=== PATIENT | female | born 1965 ===

== ENCOUNTER 2018-03-21 06:48 | Day surgery (SDC) | payer OTHER ==
[2018-03-17 13:23] VITALS: BMI 23.4
[2018-03-21 07:27] VITALS: O2SAT 100
[2018-03-21] MEDS ORDERED: Lactated Ringer's 1,000 ML IV ONE ×2 (07:55)
[2018-03-21] MEDS ORDERED: Propofol 10 mg/ml Inj (20 ML) ONE (07:57)
--- NOTE | 2018-03-21 07:58 | CP.SDSHP ---
Same Day Surgery H & P - History Proposed Procedure: COLONSCOPY Pre-Op Diagnosis: SEE NOTES - Previous Medical/Surgical History Endocrine/Metabolic: Other Misc: Other Pain: 2.Mild Pain - Allergies Allergies: Allergies No Known Allergies Allergy (Verified 03/17/18 13:05) - Physical Exam General Appearance: N Vital Signs: Vital Signs 03/21/18 07:21 Temperature 97.7 F Pulse Rate 80 Respiratory 20 Rate Blood Pressure 153/84 H O2 Sat by Pulse 100 Oximetry Mental Status: Alert & Oriented x3 Neuro: WNL Heart: WNL Lungs: WNL GI: WNL - {Optional Preform as Required} Breast: WNL Abdomen: Other Rectal: WNL Integument: WNL : WNL Ortho: WNL ENT: WNL - Impression Pt. Evaluated Today:Candidate for Anesthesia & Procedure: Yes - Date & Time Time: 07:57 Short Stay Discharge - Short Stay Discharge Admitting Diagnosis/Reason for Visit: COLON SCREENING Disposition: HOME/ ROUTINE
[2018-03-21] MEDS ORDERED: Belladonna-Phenobarbital PO ONE (08:45)
[2018-03-21] MEDS ORDERED: Pantoprazole 40 mg EC Tab PO ONE (08:45)
[2018-03-21 09:26] VITALS: TEMP 98.6
[2018-03-21 12:36] VITALS: BP 118/77; PULSE 62; RESP 14
== END 2018-03-21 09:50 | disposition home or self-care (01) ==
LOC: C.ENDO 06:48
PROVIDERS: ATTEND Specialist
DX: K58.9 Irritable bowel syndrome, unspecified (principal); K64.8 Other hemorrhoids
CPT/HCPCS: 45378; 84703; 88305; J2704; J7120